=== PATIENT | male | born 1955 | race Caucasian/White ===

== ENCOUNTER 2017-02-16 08:51 | Emergency (ER) | payer MEDICARE, OTHER ==
[~2017-02-16] VITALS: Ht 152.4 cm; Wt 55.0 kg
[~2017-02-16 08:51] MED LIST: AMLO-512 PO; ASPI81TA2 PO; BENZ-26 PO; CLON.2 PO; EPOE200015 SQ; FOLI1CAP2 PO; GLIP5 PO; HYDR100T28 PO; LOSA25TA21 PO; SEVEC800 PO; VALS80TA2 PO
[2017-02-16] MEDS ORDERED: METO50 PO (09:06)
[2017-02-16] MEDS ORDERED: NIFE60TA81 PO (09:06)
[2017-02-16 09:12] LABS: GLUCOSE,POINT OF CARE 217 MG/DL (70-110)
[2017-02-16 11:58] VITALS: BP 165/73
== END 2017-02-16 12:05 | disposition home or self-care (01) ==
LOC: EMS 08:57
DX: K13.79 Other lesions of oral mucosa (principal); K91.840 Postprocedural hemorrhage of a digestive system organ or structure following a digestive system procedure; I50.9 Heart failure, unspecified; E11.9 Type 2 diabetes mellitus without complications; N40.0 Benign prostatic hyperplasia without lower urinary tract symptoms; Z79.82 Long term (current) use of aspirin
CPT/HCPCS: 82962; 99282

== ENCOUNTER → 2017-12-13 | Outpatient (CLI) | payer MEDICARE, OTHER ==
[~2017-12-13] MED LIST changes: -ASPI81TA2 PO; +ASPI81TA39 PO; -BENZ-26 PO; +BENZ-51 PO; -LOSA25TA21 PO; +METO50 PO; +NIFE60TA81 PO
== END | disposition home or self-care (01) ==
LOC: RADPV 08:49
PROVIDERS: ATTEND Nurse Practitioner
DX: J98.4 Other disorders of lung (principal); I70.0 Atherosclerosis of aorta
CPT/HCPCS: 71046

== ENCOUNTER 2018-11-17 14:13 | Inpatient (IN) | payer MEDICARE, OTHER ==
[~2018-11-17] VITALS: Ht 154.9 cm; Wt 59.5 kg
[~2018-11-17 14:13] MED LIST changes: -AMLO-512 PO; +AMLO5TAB4 PO; -ASPI81TA39 PO; -BENZ-51 PO; +CARV12.580 PO; -CLON.2 PO; -EPOE200015 SQ; +FOLI0.8T22 PO; -FOLI1CAP2 PO; -GLIP5 PO; -HYDR100T28 PO; +LOSA50TA2 PO; -METO50 PO; -NIFE60TA81 PO; -SEVEC800 PO; +SITA25 PO; -VALS80TA2 PO
[2018-11-17] MEDS ORDERED: ASPI81 PO (14:47)
[2018-11-17] MEDS ORDERED: NIFE60TA71 PO (14:47)
[2018-11-17] MEDS ORDERED: HYDR-2924 PO (14:47)
[2018-11-17] MEDS ORDERED: GLIP5 PO (14:47)
[2018-11-17] MEDS ORDERED: ISOS60TA4 PO (14:47)
[2018-11-17] MEDS ORDERED: ATOR40TA28 PO (14:47)
[2018-11-17] MEDS ORDERED: PHOSLOC PO (14:47)
[2018-11-17] MEDS ORDERED: METO50 PO (14:47)
[2018-11-17 14:48] LABS: GLUCOSE,POINT OF CARE 214 MG/DL (70-110)
[2018-11-17 15:33] LABS: BASOPHILS % (AUTO) 0.8 % (0.0-2.0); HEMATOCRIT 25.9 % (41-53); HEMOGLOBIN 8.7 g/dL (13.5-17.5); LYMPHOCYTES # (AUTO) 0.7 K/uL (1.0-4.8); LYMPHOCYTES % (AUTO) 8.9 % (22.0-44.0); MEAN CORPUSCULAR HEMOGLOBIN 29.3 pg (26.0-34.0); MEAN CORPUSCULAR HGB CONC 33.4 G/dL (31.0-37.0); MEAN CORPUSCULAR VOLUME 88 fL (80-100); MONOCYTES # (AUTO) 0.7 K/uL (0.1-1.0); MONOCYTES % (AUTO) 7.7 % (2.0-9.0); NEUTROPHILS # (AUTO) 6.8 K/uL (1.8-7.7); NEUTROPHILS % (AUTO) 80.6 % (40.0-70.0); PLATELET COUNT (AUTO) 374 K/uL (150-450); RED BLOOD CELL COUNT(AUTO) 2.95 MIL/uL (4.50-5.90); RED CELL DISTRIBUTION WIDTH 16.1 % (11.5-14.5)
[2018-11-17 15:49] LABS: ALBUMIN 3.4 g/dL (3.4-5.0); CALCIUM, TOTAL 10.3 mg/dL (8.8-10.5); CREATININE 10.03 mg/dL (0.60-1.30); TOTAL PROTEIN, SERUM 8.6 g/dL (6.4-8.2)
[2018-11-17 15:53] LABS: POTASSIUM 6.1 mmol/L (3.5-5.1)
[2018-11-17] MEDS ORDERED: ALBUTEROL SULFATE 5 MG/ML 20 ML NEB SOLN [BULK] NEB ONE (17:00)
[2018-11-17] MEDS ORDERED: INSULIN REGULAR, HUMAN 100 UNITS/ML IVP ONE (17:00)
[2018-11-17] MEDS ORDERED: SODIUM POLYSTYRENE SULFONATE 15 GM/60 ML SUSPENSION BOTTLE PO ONE (17:00)
[2018-11-17] MEDS ORDERED: DEXTROSE 50%-WATER 25 GM/50 ML SYRINGE IVP ONE (17:00)
[2018-11-17] MEDS ORDERED: NITROGLYCERIN 0.4 MG SUBLINGUAL TABLET #25 SL ONE (17:30)
[2018-11-17] MEDS ORDERED: ASPIRIN 325 MG TABLET PO ONE (17:30)
[2018-11-17 20:39] LABS: ALBUMIN 3.3 g/dL (3.4-5.0); BILIRUBIN,TOTAL 0.9 mg/dL (0.1-1.0); CALCIUM, TOTAL 10.3 mg/dL (8.8-10.5); CREATININE 10.81 mg/dL (0.60-1.30); POTASSIUM 4.2 mmol/L (3.5-5.1); TOTAL PROTEIN, SERUM 8.3 g/dL (6.4-8.2)
[2018-11-17 22:18] VITALS: BP 157/65
[2018-11-17 23:38] VITALS: BP 148/62
[2018-11-18] VITALS (8 sets, daily range): BP systolic 165–192; BP diastolic 72–81
[2018-11-18] MEDS ORDERED: MORPHINE SULFATE 2 MG/ML SYRINGE IVP PRN (03:30)
[2018-11-18] MEDS ORDERED: NITROGLYCERIN 2% (1 GM=INCH) PACKET TP PRN (03:30)
[2018-11-18] MEDS ORDERED: DEXTROSE 50%-WATER 25 GM/50 ML SYRINGE IVP PRN (03:30)
[2018-11-18 05:19] LABS: BASOPHILS % (AUTO) 0.8 % (0.0-2.0); HEMATOCRIT 23.4 % (41-53); HEMOGLOBIN 7.7 g/dL (13.5-17.5); LYMPHOCYTES % (AUTO) 11.9 % (22.0-44.0); MEAN CORPUSCULAR HEMOGLOBIN 29.1 pg (26.0-34.0); MEAN CORPUSCULAR HGB CONC 32.9 G/dL (31.0-37.0); MEAN CORPUSCULAR VOLUME 89 fL (80-100); MONOCYTES # (AUTO) 0.6 K/uL (0.1-1.0); MONOCYTES % (AUTO) 7.9 % (2.0-9.0); NEUTROPHILS # (AUTO) 6.4 K/uL (1.8-7.7); NEUTROPHILS % (AUTO) 78.4 % (40.0-70.0); PLATELET COUNT (AUTO) 328 K/uL (150-450); RED BLOOD CELL COUNT(AUTO) 2.65 MIL/uL (4.50-5.90)
[2018-11-18 05:47] LABS: % IRON SATURATION 9.7 % (30-44)
[2018-11-18 05:55] LABS: CALCIUM, TOTAL 9.8 mg/dL (8.8-10.5); CREATININE 11.46 mg/dL (0.60-1.30); MAGNESIUM 2.9 mg/dL (1.80-2.40); PHOSPHORUS 7.4 mg/dL (2.5-4.9); POTASSIUM 5.2 mmol/L (3.5-5.1)
[2018-11-18] MEDS: INSULIN LISPRO 100 UNITS/ML SQ PRN ×4 (06:06→21:17)
[2018-11-18 07:29] LABS: GLUCOMETER DEV NAME(LOC) 5N.2; GLUCOSE,POINT OF CARE 262 MG/DL (70-110)
[2018-11-18] MEDS ORDERED: AmLODIPine BESYLATE 5 MG TABLET PO SCH (09:00)
[2018-11-18] MEDS ORDERED: EPOETIN ALFA 10,000 UNITS/ML VIAL SQ SCH (09:00)
[2018-11-18] MEDS ORDERED: CARVEDILOL 12.5 MG TABLET PO SCH (09:00)
[2018-11-18] MEDS: FUROSEMIDE 40 MG/4 ML VIAL IVP SCH (09:00)
[2018-11-18] MEDS ORDERED: METOPROLOL TARTRATE 50 MG TABLET PO SCH (09:00)
[2018-11-18] MEDS ORDERED: ASPIRIN 325 MG TABLET PO SCH ×2 (09:00)
[2018-11-18] MEDS: ATORVASTATIN CALCIUM 40 MG TABLET PO SCH (11:24)
[2018-11-18] MEDS: HydrALAZINE HCL 50 MG TABLET PO SCH ×3 (11:25→21:10)
[2018-11-18] MEDS: ASPIRIN 81 MG CHEWABLE TABLET PO SCH (11:25)
[2018-11-18 14:09] LABS: GLUCOMETER DEV NAME(LOC) 5N.2; GLUCOSE,POINT OF CARE 198 MG/DL (70-110)
[2018-11-18] MEDS: ISOSORBIDE MONONITRATE 60 MG ER TABLET PO SCH (14:10)
[2018-11-18] MEDS ORDERED: SODIUM CHLORIDE 0.9% 2,000 ML IV ONE ×2 (14:32→18:11)
[2018-11-18 19:43] LABS: GLUCOMETER DEV NAME(LOC) 5N.2; GLUCOSE,POINT OF CARE 176 MG/DL (70-110)
[2018-11-18] MEDS: NIFEdipine 60 MG ER TABLET PO SCH (21:54)
[2018-11-18] MEDS: CARVEDILOL 25 MG TABLET PO SCH (22:00)
[2018-11-18 22:33] LABS: GLUCOMETER DEV NAME(LOC) 5S.2; GLUCOSE,POINT OF CARE 155 MG/DL (70-110)
[2018-11-18] MEDS ORDERED: CloNIDine HCL 0.1 MG TABLET PO PRN (23:45)
[2018-11-19 00:24] VITALS: BP 162/64
[2018-11-19 00:53] VITALS: BP 150/62
[2018-11-19 04:09] VITALS: BP 123/80
[2018-11-19 07:13] VITALS: BP 125/49
[2018-11-19 07:23] LABS: BASOPHILS % (AUTO) 0.7 % (0.0-2.0); EOSINOPHILS % (AUTO) 4.2 % (1.0-6.0); HEMATOCRIT 23.9 % (41-53); HEMOGLOBIN 7.9 g/dL (13.5-17.5); LYMPHOCYTES # (AUTO) 0.7 K/uL (1.0-4.8); LYMPHOCYTES % (AUTO) 9.3 % (22.0-44.0); MEAN CORPUSCULAR HEMOGLOBIN 29.5 pg (26.0-34.0); MEAN CORPUSCULAR HGB CONC 33.1 G/dL (31.0-37.0); MEAN CORPUSCULAR VOLUME 89 fL (80-100); MONOCYTES # (AUTO) 0.5 K/uL (0.1-1.0); MONOCYTES % (AUTO) 6.7 % (2.0-9.0); NEUTROPHILS # (AUTO) 6.4 K/uL (1.8-7.7); NEUTROPHILS % (AUTO) 79.1 % (40.0-70.0); PLATELET COUNT (AUTO) 296 K/uL (150-450); RED BLOOD CELL COUNT(AUTO) 2.68 MIL/uL (4.50-5.90); RED CELL DISTRIBUTION WIDTH 16.2 % (11.5-14.5)
[2018-11-19 07:35] LABS: CALCIUM, TOTAL 9.6 mg/dL (8.8-10.5); CHOL/HDL RATIO 1.9 (4.2-7.3); CREATININE 5.73 mg/dL (0.60-1.30); MAGNESIUM 1.9 mg/dL (1.80-2.40); PHOSPHORUS 4.6 mg/dL (2.5-4.9); POTASSIUM 4.7 mmol/L (3.5-5.1)
[2018-11-19] MEDS: FUROSEMIDE 40 MG/4 ML VIAL IVP SCH (08:58)
[2018-11-19] MEDS: ISOSORBIDE MONONITRATE 60 MG ER TABLET PO SCH (08:58)
[2018-11-19] MEDS: ATORVASTATIN CALCIUM 40 MG TABLET PO SCH (08:58)
[2018-11-19] MEDS: CARVEDILOL 25 MG TABLET PO SCH (09:00)
[2018-11-19] MEDS: NIFEdipine 60 MG ER TABLET PO SCH (09:00)
[2018-11-19 11:22] VITALS: BP 132/51
[2018-11-19] MEDS: INSULIN LISPRO 100 UNITS/ML SQ PRN (11:55)
[2018-11-19] MEDS: HydrALAZINE HCL 50 MG TABLET PO SCH (12:05)
[2018-11-19] MEDS: ASPIRIN 81 MG CHEWABLE TABLET PO SCH (12:05)
[2018-11-19] MEDS ORDERED: SOD FERRIC GLUC COMPLX/SUCROSE 125 MG in SODIUM CHLORIDE 0.9% 100 ML IV SCH (13:00)
[2018-11-19 21:34] LABS: GLUCOMETER DEV NAME(LOC) 5S.2; GLUCOSE,POINT OF CARE 314 MG/DL (70-110)
[2018-11-20 01:18] LABS: GLUCOMETER DEV NAME(LOC) 5N.2; GLUCOSE,POINT OF CARE 126 MG/DL (70-110)
== END 2018-11-19 14:20 | disposition home or self-care (01) | DRG 291 ==
LOC: EMS 14:14 → 5N 21:06
PROVIDERS: ADMIT Internal Medicine; ATTEND Internal Medicine
PROC: 5A1D70Z Performance of Urinary Filtration, Intermittent, Less than 6 Hours Per Day (ICD-10-PCS; principal; 2018-11-18)
DX: I13.2 Hypertensive heart and chronic kidney disease with heart failure and with stage 5 chronic kidney disease, or end stage renal disease (principal); N18.6 End stage renal disease; I50.33 Acute on chronic diastolic (congestive) heart failure; E11.43 Type 2 diabetes mellitus with diabetic autonomic (poly)neuropathy; E11.22 Type 2 diabetes mellitus with diabetic chronic kidney disease; E87.5 Hyperkalemia; D64.9 Anemia, unspecified; E11.319 Type 2 diabetes mellitus with unspecified diabetic retinopathy without macular edema; G47.33 Obstructive sleep apnea (adult) (pediatric); R74.8 Abnormal levels of other serum enzymes; E11.51 Type 2 diabetes mellitus with diabetic peripheral angiopathy without gangrene; I25.119 Atherosclerotic heart disease of native coronary artery with unspecified angina pectoris; I27.20 Pulmonary hypertension, unspecified; K31.84 Gastroparesis; N40.0 Benign prostatic hyperplasia without lower urinary tract symptoms; Z79.82 Long term (current) use of aspirin; Z99.2 Dependence on renal dialysis; Z79.84 Long term (current) use of oral hypoglycemic drugs; Z79.899 Other long term (current) drug therapy; Z82.49 Family history of ischemic heart disease and other diseases of the circulatory system; Z83.3 Family history of diabetes mellitus; Z85.528 Personal history of other malignant neoplasm of kidney; Z90.5 Acquired absence of kidney; Z79.4 Long term (current) use of insulin; R07.89 Other chest pain
CPT/HCPCS: 83540; 83550; 83735; 84100; 87081; 87340; 93005; 94640; 96374; 96375; 99291; G0378; J0885; J1815; J1940; J2270; J2916; J7030; J7050

== ENCOUNTER 2018-12-09 12:11 | Inpatient (IN) | payer MEDICARE, OTHER ==
[~2018-12-09] VITALS: Ht 162.6 cm; Wt 57.1 kg
[~2018-12-09 12:11] MED LIST changes: +ASPI81 PO; +ATOR40TA28 PO; +GLIP5 PO; +HYDR-2924 PO; +ISOS60TA4 PO; -LOSA50TA2 PO; +NIFE60TA71 PO; +PHOSLOC PO; -SITA25 PO
[2018-12-09 12:28] LABS: GLUCOSE,POINT OF CARE 83 MG/DL (70-110)
[2018-12-09] MEDS ORDERED: METO50 PO (12:34)
[2018-12-09] MEDS ORDERED: NITR.4 SL (12:34)
[2018-12-09 12:58] LABS: BASOPHILS % (AUTO) 0.8 % (0.0-2.0); EOSINOPHILS % (AUTO) 3.5 % (1.0-6.0); HEMATOCRIT 27.1 % (41-53); LYMPHOCYTES # (AUTO) 0.9 K/uL (1.0-4.8); LYMPHOCYTES % (AUTO) 11.9 % (22.0-44.0); MEAN CORPUSCULAR HEMOGLOBIN 28.6 pg (26.0-34.0); MEAN CORPUSCULAR HGB CONC 33.2 G/dL (31.0-37.0); MEAN CORPUSCULAR VOLUME 86 fL (80-100); MONOCYTES # (AUTO) 0.7 K/uL (0.1-1.0); MONOCYTES % (AUTO) 8.8 % (2.0-9.0); NEUTROPHILS # (AUTO) 5.9 K/uL (1.8-7.7); PLATELET COUNT (AUTO) 339 K/uL (150-450); RED BLOOD CELL COUNT(AUTO) 3.14 MIL/uL (4.50-5.90); RED CELL DISTRIBUTION WIDTH 15.7 % (11.5-14.5)
[2018-12-09 13:11] LABS: INR 1.1 (0.9-1.1); PROTHROMBIN TIME 11.7 SEC (9.4-11.6)
[2018-12-09 13:19] LABS: ALBUMIN 3.2 g/dL (3.4-5.0); BILIRUBIN,TOTAL 0.8 mg/dL (0.1-1.0); CALCIUM, TOTAL 9.2 mg/dL (8.8-10.5); CREATININE 3.37 mg/dL (0.60-1.30); TOTAL PROTEIN, SERUM 8.5 g/dL (6.4-8.2)
[2018-12-09 13:24] LABS: POTASSIUM 2.9 mmol/L (3.5-5.1)
[2018-12-09] MEDS ORDERED: AMLO-512 PO (13:25)
[2018-12-09] MEDS ORDERED: NITROGLYCERIN 2% (1 GM=INCH) PACKET TP ONE (13:30)
[2018-12-09] MEDS ORDERED: POTASSIUM CHLORIDE 20 MEQ ER TABLET PO ONE (13:30)
[2018-12-09] MEDS ORDERED: HYDROCODONE/ACETAMINOPHEN 5-325 MG TABLET PO ONE (13:30)
[2018-12-09] MEDS ORDERED: ASPIRIN 81 MG CHEWABLE TABLET PO ONE (13:45)
[2018-12-09] MEDS ORDERED: ACETAMINOPHEN 325 MG TABLET PO PRN ×2 (15:00→21:30)
[2018-12-09] MEDS ORDERED: 0.9% SODIUM CHLORIDE 10 ML SYRINGE IVP PRN (15:00)
[2018-12-09 16:18] VITALS: BP 151/61
[2018-12-09 19:28] VITALS: BP 151/62
[2018-12-09] MEDS ORDERED: ONDANSETRON HCL 4 MG/2 ML VIAL IVP PRN (21:30)
[2018-12-09] MEDS ORDERED: ZOLPIDEM TARTRATE 5 MG TABLET PO PRN (21:30)
[2018-12-09] MEDS ORDERED: HYDROCODONE/ACETAMINOPHEN 5-325 MG TABLET PO PRN (21:30)
[2018-12-09] MEDS ORDERED: MAGNESIUM HYDROXIDE SUSPENSION 30 ML UDCUP PO PRN (21:30)
[2018-12-09] MEDS ORDERED: BISACODYL 10 MG RECTAL RECTAL SUPPOSITORY PR PRN (21:30)
[2018-12-09] MEDS ORDERED: MORPHINE SULFATE 2 MG/ML SYRINGE IVP PRN (21:30)
[2018-12-09 23:46] VITALS: BP 155/69
[2018-12-10 04:17] VITALS: BP 151/64
[2018-12-10 06:36] LABS: BASOPHILS % (AUTO) 0.7 % (0.0-2.0); HEMATOCRIT 28.1 % (41-53); HEMOGLOBIN 9.2 g/dL (13.5-17.5); LYMPHOCYTES # (AUTO) 0.8 K/uL (1.0-4.8); LYMPHOCYTES % (AUTO) 7.7 % (22.0-44.0); MEAN CORPUSCULAR HEMOGLOBIN 28.1 pg (26.0-34.0); MEAN CORPUSCULAR HGB CONC 32.8 G/dL (31.0-37.0); MEAN CORPUSCULAR VOLUME 86 fL (80-100); MONOCYTES # (AUTO) 0.9 K/uL (0.1-1.0); MONOCYTES % (AUTO) 8.9 % (2.0-9.0); NEUTROPHILS # (AUTO) 8.1 K/uL (1.8-7.7); NEUTROPHILS % (AUTO) 79.7 % (40.0-70.0); PLATELET COUNT (AUTO) 336 K/uL (150-450); RED BLOOD CELL COUNT(AUTO) 3.27 MIL/uL (4.50-5.90); RED CELL DISTRIBUTION WIDTH 15.9 % (11.5-14.5)
[2018-12-10 06:44] LABS: BILIRUBIN,TOTAL 0.8 mg/dL (0.1-1.0); CALCIUM, TOTAL 9.3 mg/dL (8.8-10.5); CREATININE 5.12 mg/dL (0.60-1.30); POTASSIUM 4.7 mmol/L (3.5-5.1); TOTAL PROTEIN, SERUM 7.9 g/dL (6.4-8.2)
[2018-12-10 07:51] VITALS: BP 190/86
[2018-12-10] MEDS: HEPARIN SODIUM,PORCINE 5,000 UNITS/ML VIAL SQ SCH ×3 (08:00→16:00)
[2018-12-10 08:14] LABS: GLUCOMETER DEV NAME(LOC) 5S.1; GLUCOSE,POINT OF CARE 248 MG/DL (70-110)
[2018-12-10] MEDS: DOCUSATE SODIUM 100 MG CAPSULE PO SCH ×2 (08:24→20:43)
[2018-12-10] MEDS: HydrALAZINE HCL 50 MG TABLET PO SCH ×3 (08:25→20:43)
[2018-12-10] MEDS: ASPIRIN 81 MG CHEWABLE TABLET PO SCH (08:25)
[2018-12-10] MEDS: ATORVASTATIN CALCIUM 40 MG TABLET PO SCH (08:26)
[2018-12-10] MEDS: AmLODIPine BESYLATE 10 MG TABLET PO SCH (08:26)
[2018-12-10] MEDS: METOPROLOL TARTRATE 50 MG TABLET PO SCH ×3 (08:26→20:43)
[2018-12-10] MEDS: NIFEdipine 60 MG ER TABLET PO SCH ×2 (08:27→20:43)
[2018-12-10] MEDS: PANTOPRAZOLE SODIUM 40 MG DR TABLET PO SCH (08:27)
[2018-12-10] MEDS ORDERED: DEXTROSE 50%-WATER 25 GM/50 ML SYRINGE IVP PRN (08:45)
[2018-12-10] MEDS: INSULIN LISPRO 100 UNITS/ML SQ PRN ×2 (11:41→20:46)
[2018-12-10 11:54] VITALS: BP 142/60
[2018-12-10 13:04] LABS: GLUCOMETER DEV NAME(LOC) 5S.1; GLUCOSE,POINT OF CARE 234 MG/DL (70-110)
[2018-12-10 15:50] VITALS: BP 137/60
[2018-12-10 19:48] VITALS: BP 133/61
[2018-12-10 21:59] LABS: GLUCOMETER DEV NAME(LOC) 5N.1; GLUCOSE,POINT OF CARE 195 MG/DL (70-110)
[2018-12-10 23:44] VITALS: BP 126/83
[2018-12-11] MEDS: HEPARIN SODIUM,PORCINE 5,000 UNITS/ML VIAL SQ SCH ×2 (00:12→08:27)
[2018-12-11 05:38] VITALS: BP 139/58
[2018-12-11 05:49] LABS: GLUCOMETER DEV NAME(LOC) 5S.1; GLUCOSE,POINT OF CARE 122 MG/DL (70-110)
[2018-12-11 06:49] LABS: GLUCOMETER DEV NAME(LOC) 5N.1; GLUCOSE,POINT OF CARE 103 MG/DL (70-110)
[2018-12-11 06:52] LABS: BASOPHILS % (AUTO) 0.6 % (0.0-2.0); EOSINOPHILS % (AUTO) 2.8 % (1.0-6.0); HEMATOCRIT 26.8 % (41-53); HEMOGLOBIN 8.9 g/dL (13.5-17.5); LYMPHOCYTES # (AUTO) 0.9 K/uL (1.0-4.8); LYMPHOCYTES % (AUTO) 11.4 % (22.0-44.0); MEAN CORPUSCULAR HEMOGLOBIN 28.3 pg (26.0-34.0); MEAN CORPUSCULAR HGB CONC 33.2 G/dL (31.0-37.0); MEAN CORPUSCULAR VOLUME 85 fL (80-100); MONOCYTES # (AUTO) 0.7 K/uL (0.1-1.0); MONOCYTES % (AUTO) 8.9 % (2.0-9.0); NEUTROPHILS # (AUTO) 6.1 K/uL (1.8-7.7); NEUTROPHILS % (AUTO) 76.3 % (40.0-70.0); PLATELET COUNT (AUTO) 320 K/uL (150-450); RED BLOOD CELL COUNT(AUTO) 3.14 MIL/uL (4.50-5.90)
[2018-12-11 07:23] LABS: CALCIUM, TOTAL 9.6 mg/dL (8.8-10.5); CREATININE 6.99 mg/dL (0.60-1.30); MAGNESIUM 2.4 mg/dL (1.80-2.40); PHOSPHORUS 5.6 mg/dL (2.5-4.9); POTASSIUM 5.6 mmol/L (3.5-5.1)
[2018-12-11] MEDS ORDERED: SODIUM POLYSTYRENE SULFONATE 15 GM/60 ML SUSPENSION BOTTLE PO ONE (07:45)
[2018-12-11] MEDS: DOCUSATE SODIUM 100 MG CAPSULE PO SCH (08:27)
[2018-12-11] MEDS: NIFEdipine 60 MG ER TABLET PO SCH (08:28)
[2018-12-11] MEDS: PANTOPRAZOLE SODIUM 40 MG DR TABLET PO SCH (08:28)
[2018-12-11] MEDS: ATORVASTATIN CALCIUM 40 MG TABLET PO SCH (08:28)
[2018-12-11] MEDS: HydrALAZINE HCL 50 MG TABLET PO SCH (08:28)
[2018-12-11] MEDS: METOPROLOL TARTRATE 50 MG TABLET PO SCH (08:28)
[2018-12-11] MEDS: AmLODIPine BESYLATE 10 MG TABLET PO SCH (08:28)
[2018-12-11] MEDS: ASPIRIN 81 MG CHEWABLE TABLET PO SCH (08:28)
[2018-12-11 08:42] VITALS: BP 137/58
[2018-12-11 11:11] VITALS: BP 145/63
== END 2018-12-11 11:20 | disposition home or self-care (01) | DRG 291 ==
LOC: EMS 12:14 → 5S 15:03
PROVIDERS: ADMIT Internal Medicine; ATTEND Internal Medicine
DX: I13.2 Hypertensive heart and chronic kidney disease with heart failure and with stage 5 chronic kidney disease, or end stage renal disease (principal); I50.31 Acute diastolic (congestive) heart failure; N18.6 End stage renal disease; E44.0 Moderate protein-calorie malnutrition; E87.6 Hypokalemia; Z99.2 Dependence on renal dialysis; E78.5 Hyperlipidemia, unspecified; E83.39 Other disorders of phosphorus metabolism; Z87.01 Personal history of pneumonia (recurrent); M54.6 Pain in thoracic spine; Z68.21 Body mass index [BMI] 21.0-21.9, adult; E11.21 Type 2 diabetes mellitus with diabetic nephropathy; D63.1 Anemia in chronic kidney disease; E11.22 Type 2 diabetes mellitus with diabetic chronic kidney disease; N40.0 Benign prostatic hyperplasia without lower urinary tract symptoms; Z85.528 Personal history of other malignant neoplasm of kidney; Z90.5 Acquired absence of kidney
CPT/HCPCS: 71250; 83735; 84100; 87081; 93005; 93306; G0378; J1644